=== PATIENT | female | born 1940 | race Caucasian/White ===

== ENCOUNTER → 2022-11-20 10:01 | Outpatient (REF) | payer OTHER, SELFPAY | LOC: WOUND 10:01 | PROVIDERS: ATTENDING PHYSICIAN Surgery; REFERRING PHYSICIAN Family Medicine | DX: I87.2 Venous insufficiency (chronic) (peripheral) (principal); L97.812 Non-pressure chronic ulcer of other part of right lower leg with fat layer exposed; I73.9 Peripheral vascular disease, unspecified; E78.2 Mixed hyperlipidemia; I10 Essential (primary) hypertension; E11.69 Type 2 diabetes mellitus with other specified complication; Z85.820 Personal history of malignant melanoma of skin | CPT/HCPCS: 11042; 97597 ==

== ENCOUNTER → 2022-11-26 09:58 | Outpatient (REF) | payer OTHER, SELFPAY | LOC: WOUND 09:58 | PROVIDERS: ATTENDING PHYSICIAN Surgery; REFERRING PHYSICIAN Family Medicine | DX: I87.2 Venous insufficiency (chronic) (peripheral) (principal); L97.812 Non-pressure chronic ulcer of other part of right lower leg with fat layer exposed; I73.9 Peripheral vascular disease, unspecified; E78.2 Mixed hyperlipidemia; I10 Essential (primary) hypertension; E11.69 Type 2 diabetes mellitus with other specified complication; Z85.820 Personal history of malignant melanoma of skin | CPT/HCPCS: 11042; 97597 ==

== ENCOUNTER → 2023-02-04 13:25 | Outpatient (REF) | payer OTHER, SELFPAY | LOC: WOUND 13:25 | PROVIDERS: ATTENDING PHYSICIAN Surgery Plastic and Reconstructive Surgery; REFERRING PHYSICIAN Family Medicine | DX: E11.622 Type 2 diabetes mellitus with other skin ulcer (principal); L97.812 Non-pressure chronic ulcer of other part of right lower leg with fat layer exposed; I87.2 Venous insufficiency (chronic) (peripheral); E11.51 Type 2 diabetes mellitus with diabetic peripheral angiopathy without gangrene | CPT/HCPCS: 97597; 99213 ==

== ENCOUNTER → 2023-03-18 09:27 | Outpatient (REF) | payer OTHER, SELFPAY | LOC: WOUND 09:27 | PROVIDERS: ATTENDING PHYSICIAN Surgery; REFERRING PHYSICIAN Family Medicine | DX: L97.812 Non-pressure chronic ulcer of other part of right lower leg with fat layer exposed (principal); I87.2 Venous insufficiency (chronic) (peripheral); I73.9 Peripheral vascular disease, unspecified; E78.2 Mixed hyperlipidemia; I10 Essential (primary) hypertension; E11.69 Type 2 diabetes mellitus with other specified complication; Z85.820 Personal history of malignant melanoma of skin | CPT/HCPCS: 97597; 99212 ==

== ENCOUNTER → 2023-03-27 09:11 | Outpatient (REF) | payer OTHER, SELFPAY | LOC: WOUND 09:11 | PROVIDERS: ATTENDING PHYSICIAN Surgery; REFERRING PHYSICIAN Family Medicine | DX: I87.2 Venous insufficiency (chronic) (peripheral) (principal); L97.812 Non-pressure chronic ulcer of other part of right lower leg with fat layer exposed; I73.9 Peripheral vascular disease, unspecified; E78.2 Mixed hyperlipidemia; I10 Essential (primary) hypertension; E11.69 Type 2 diabetes mellitus with other specified complication; Z85.820 Personal history of malignant melanoma of skin | CPT/HCPCS: 99212 ==

== ENCOUNTER → 2023-04-02 14:50 | Outpatient (REF) | payer OTHER, SELFPAY | LOC: RAD 14:50 | PROVIDERS: ATTENDING PHYSICIAN Physician Assistant; FAMILY PHYSICIAN Family Medicine | DX: I73.9 Peripheral vascular disease, unspecified (principal) | CPT/HCPCS: 93922; 93925 ==

== ENCOUNTER 2023-06-06 14:43 | Emergency (ER) | payer OTHER, SELFPAY ==
[2023-06-06 15:01] VITALS: BP 170/89
--- NOTE | 2023-06-06 17:47 | ED.GENMED ---
History of Present Illness
General
Chief Complaint: Fall
Source: patient
Exam Limitations: none
Time Seen by Provider: 06/06/23 17:47
Nursing documentation reviewed up to this point in time: agreed with
Travel History
Have you had any contact with someone who has COVID-19?: No
Do you have any symptoms of coronavirus? Fever > 100 degrees, chills, cough, shortness of breath, sore throat, loss of taste or smell, muscle aches, or headache?: No
History of Present Illness
History of Present Illness:
83-year-old female with history of HTN, NIDDM states yesterday at home stumbled and fell in her kitchen, struck face on tile floor and hit top of head on island. Got herself up immediately, no LOC, and went and washed her hair, Today significant
bruising and moderate facial swelling. Denies headache, change in vision, neck pain or any other injury.
Past History
Past History
ED Past Medical History: HTN, Hypercholesterolemia and NIDDM
ED Past Surgical History: Gynecological and Orthopedic
Social History
Tobacco: Non-smoker
Alcohol: None
Personal:
Living: alone
Review of Systems
Review of Systems
Allergies reviewed?: Yes
All Other Systems: ROS reviewed and negative except as documented in HPI and ROS
Constitutional: Denies fever
EENT: Reports other (Bilateral periorbital ecchymosis, nasal ecchymosis); Denies mouth pain
Respiratory: Denies trouble breathing
Cardiac: Denies chest pain or syncope
ABD/GI: Denies abdominal pain or nausea
: Denies incontinence
Musculoskeletal: Denies neck pain or back pain
Skin: Reports other (Bruising about the face)
Neurological: Reports no symptoms
Phy Exam
Physical Exam
Physical Exam:
GENERAL: No acute distress. A&Ox3.
CONSTITUTIONAL: Afebrile.
Head: 1.5 cm laceration right parietal scalp, intact scab, no swelling, non tender scalp
EYES: PERRL, conjunctivae normal, EOMs intact, Mild swelling eyelids and periorbital areas with ecchymosis. Tender right infraorbital bone, rest of orbits with no significant bony tenderness
Neck: Supple
ENMT: moist mucus membranes, Pharynx nl, TMs normal, no hemotympanum, Teeth intact
RESPIRATORY: Regular respirations, nonlabored, lungs clear.
CARDIOVASCULAR: Regular rate and rhythm, no murmurs, no rubs.
GI: Soft, nontender, normal BS
MUSCULOSKELETAL: No spinal bony tenderness, moves with ease. Well perfused.
SKIN: Warm, dry, pink, Ecchymosis and mild to moderate swelling right periorbital area, mild swelling and ecchymosis L periorbital area, ecchymosis chin.
PSYCH: Normal mood and affect. Well kept, interactive and appropriate
NEUROLOGIC: Awake, alert and oriented. No focal neurological deficits. CN 2-12 intact. Ambulates well with steady gait.
Course
Orders/Labs/Results
Orders:
Orders
06/06/23 17:[address] [CT Facial Bones W/o Iv Contras] Urgent
Comment:
Reason For Exam: face planted on tile floor
06/06/23 17:54
CT Head W/o Iv Contrast Urgent
Comment:
Reason For Exam: fall, head inj, not anticoagulated, neuro intact
Vital Signs
Initial and Last Documented VS:
Initial Vital Signs
Temp Pulse Resp BP Pulse Ox
98.5 F 79 18 170/89 96
06/06/23 15:01 06/06/23 15:01 06/06/23 15:01 06/06/23 15:01 06/06/23 15:01
Last Documented Vital Signs
Temp Pulse Resp BP Pulse Ox
98.5 F 79 18 170/89 96
06/06/23 15:01 06/06/23 15:01 06/06/23 15:01 06/06/23 15:01 06/06/23 15:01
MDM/Problems Addressed
Differential Diagnosis Includes:
facial bone fracture, concussion,
MDM/Problems Addressed:
83-year-old female with history of HTN, NIDDM states yesterday at home stumbled and fell in her kitchen, struck face on tile floor and hit top of head on island. Got herself up immediately, no LOC, and went and washed her hair, Today significant
bruising and moderate facial swelling. Denies headache, change in vision, neck pain or any other injury.
Very spry, pleasant, NAD
Full ROM of spine and no tenderness of neck or back.
The scalp laceration seems relatively superficial and has a nice well-formed scab over it, no need for suturing.
*Critical Care Note
Total Time (30-74mins, 75-104mins- exclusive of procedures): Not Applicable
ED Attending Note
-
Portions of this chart may have been created with voice recognition software.� Occasional wrong word or��sound alike� substitutions may have occurred due to the inherent limitations of voice recognition software.
Discharge Plan
Departure
Patient Disposition: Home (Routine Discharge)
Patient with high blood pressure during this ER visit?: No
Condition: Good
Discharge Problem:
Fall from slip, trip, or stumble, Contusion of face, Head injury, acute, Abrasion of scalp, Fracture closed, nasal bone
Instructions: Head Injury in Adults (DC), Contusion (DC), Preventing falls in adults, Nose Fracture (DC)
Prescriptions:
No Action
metformin 500 MG tablet
1,000 mg PO BID@0800,1700 Qty: 0 0RF
Hold Instructions: Resume on 01/25/23.
acetaminophen 325 MG tablet
650 mg PO Q4HPRN PRN (Reason: mild pain) Qty: 0 0RF
amoxicillin 500 mg Tablet
2,000 mg PO PRN PRN (Reason: prior to dental work)
simvastatin 40 mg Tablet
40 mg PO QPM
valsartan-hydrochlorothiazide 160-25 mg Tablet
1 tab PO DAILY
Restasis MultiDose 0.05 % Drops
1 drp OPHTHALMIC (EYE) Q12H
PreserVision AREDS-2 250-90-40-1 mg Capsule
1 tab PO BID
Referrals:
Ba Lofton MD [Active] -
Ezequiel Juan MD [Family Provider] - As needed
Activity Restrictions/Additional Instructions:
As we discussed, your CT scans show nothing worrisome. You do have a nasal fracture follow-up with ENT as needed.
Tylenol as needed for pain
Interventions
Interventions:
*Risk Screen - Suicide Last Done: 06/06/23 16:58
*General Assessment Last Done: 06/06/23 16:58
*Neglect/Abuse Screening Last Done: 06/06/23 16:58
ED- Fall Risk Assessment Last Done: 06/06/23 17:05
*ED COVID-19 Vaccine History Last Done: 06/06/23 16:58
*Nursing Disposition Last Done: 06/06/23 19:53
ED-Musculoskeletal Assessment Last Done: 06/06/23 17:02
ED- Neurological Assessment Last Done: 06/06/23 17:02
ED-Skin Assessment Last Done: 06/06/23 17:02
Discharge Date and Time
Discharge Date/Time: 06/06/23 19:53
Print Language: SETS[place]
== END 2023-06-06 19:53 | disposition home or self-care (01) ==
LOC: EMR 14:43
PROVIDERS: EMERGENCY PHYSICIAN Emergency Medicine; FAMILY PHYSICIAN Family Medicine
DX: S01.01XA Laceration without foreign body of scalp, initial encounter (principal); W01.119A Fall on same level from slipping, tripping and stumbling with subsequent striking against unspecified sharp object, initial encounter; I10 Essential (primary) hypertension; E11.9 Type 2 diabetes mellitus without complications
CPT/HCPCS: 99284; 70450; 70486

== ENCOUNTER 2023-08-28 22:55 | Emergency (ER) | payer OTHER, SELFPAY ==
[2023-08-28 23:00] VITALS: BP 167/82; BMI 23.7
[2023-08-28 23:02] VITALS: BP 167/82
[2023-08-29] VITALS (7 sets, daily range): BP systolic 128–168; BP diastolic 59–74
--- NOTE | 2023-08-29 00:05 | ED.GENMED ---
History of Present Illness
<Michelle Tijerina MD, Resident - Last Filed: 08/29/23 02:35>
General
Chief Complaint: Musculo-Skeletal Complaint
Source: patient
Time Seen by Provider: 08/28/23 23:47
History of Present Illness
History of Present Illness:
83-year-old female with history of hypertension, type 2 diabetes hyperlipidemia, presented to the ED with right hip discomfort. Patient states that while she was getting in bed she felt right hip discomfort like something was not dry. Patient
tried to get out from the bed but she was unable to bear weight on her right side. She denied pain in the right hip or right leg. She reports of being off balance. She uses a cane to walk. 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
ago (2013). Patient states that she felt that her right leg is shorter than the left leg. Patient takes metformin for diabetes. She denies history of CHF, A-fib, stroke.
Past History
<Michelle Tijerina MD, Resident - Last Filed: 08/29/23 02:35>
Past History
ED Past Medical History: HTN, Hypercholesterolemia and NIDDM
ED Past Surgical History: Gynecological and Orthopedic
Social History
Tobacco: Non-smoker
Alcohol: None
Personal:
Living: alone
Phy Exam
<Michelle Tijerina MD, Resident - Last Filed: 08/29/23 02:35>
General Physical Exam
General Presentation: well appearing
General age: appears stated age
General Skin: warm and dry
General Habitus: normal and elderly
General Mental: alert
General Hydration: appears well hydrated
Cardiovascular Exam
Cardiovascular Exam: regular rate/rhythm and no murmur
Pulmonary Exam
Pulmonary Exam: lungs clear, no rales, no crackles and no rhonchi
Musculoskeletal Exam
Musculoskeletal Exam: no edema and other (Inspection-no erythema, swelling in right hip, shortening of right leg than the left. palpation-no tenderness, no warmth. Restricted range of motion.)
Course
<Michelle Tijerina MD, Resident - Last Filed: 08/29/23 02:35>
Orders/Labs/Results
Orders:
Orders
08/28/23 23:08
CR Hip - RT w/wo Pel 2-3 Vw* Urgent
Comment:
Reason For Exam: possible dislocation
Include a pelvis x-ray?: Yes
08/29/23 00:38
Ondansetron Injectable [Zofran] 4 mg IV NOW STA
08/29/23 00:56
Propofol [Diprivan] 20 ml .ROUTE .STK-MED
08/29/23 01:08
Hip, Right 1 View [CR Hip - RT without Pel 1 Vw] Urgent
Comment:
Reason For Exam: s/p reduction
Vital Signs
Initial and Last Documented VS:
Initial Vital Signs
Temp Pulse Resp BP Pulse Ox
99 F 82 16 167/82 97
08/28/23 23:00 08/28/23 23:00 08/28/23 23:00 08/28/23 23:00 08/28/23 23:00
Last Documented Vital Signs
Temp Pulse Resp BP Pulse Ox
97.8 F 75 15 139/64 97
08/29/23 01:37 08/29/23 01:37 08/29/23 01:37 08/29/23 01:37 08/29/23 01:37
<Gordon Dodge DO - Last Filed: 08/29/23 02:19>
Orders/Labs/Results
Orders:
Orders
08/28/23 23:08
CR Hip - RT w/wo Pel 2-3 Vw* Urgent
Comment:
Reason For Exam: possible dislocation
Include a pelvis x-ray?: Yes
08/29/23 00:38
Ondansetron Injectable [Zofran] 4 mg IV NOW STA
08/29/23 00:56
Propofol [Diprivan] 20 ml .ROUTE .STK-MED
08/29/23 01:08
Hip, Right 1 View [CR Hip - RT without Pel 1 Vw] Urgent
Comment:
Reason For Exam: s/p reduction
Vital Signs
Initial and Last Documented VS:
Initial Vital Signs
Temp Pulse Resp BP Pulse Ox
99 F 82 16 167/82 97
08/28/23 23:00 08/28/23 23:00 08/28/23 23:00 08/28/23 23:00 08/28/23 23:00
Last Documented Vital Signs
Temp Pulse Resp BP Pulse Ox
97.8 F 75 15 139/64 97
08/29/23 01:37 08/29/23 01:37 08/29/23 01:37 08/29/23 01:37 08/29/23 01:37
Procedures
<Michelle Tijerina MD, Resident - Last Filed: 08/29/23 02:35>
Moderate Sedation
Patient is able to open mouth: Yes
<Gordon Dodge, DO - Last Filed: 08/29/23 02:19>
Moderate Sedation
ASA Risk Score: Class II
Chart and allergies reviewed: Yes
Consent for anesthesia obtained: Yes
Time out completed (validating right patient & procedure): Yes
Moderate Sedation Start Time(when first medication is given): 01:05
History of difficult intubation: No
Airway free of obstruction: Yes
Patient has a gag reflex: Yes
Patient has no dentures: Yes
Patient has no loose teeth: Yes
Medication administered by Provider during Moderate Sedation: IV Propofol (mg)
Total dose administered: 50
Time drug administered: 01:05
Joint/Fracture Reduction
Right Hip:
Indication for procedure:: dislocation
Procedure completed by: Myself, Freddy Flanagan PA-C, family law mediator
Consent form signed: Yes
Joint reduced: with anesthesia sedation
Anesthesia/sedation: Moderate sedation
Injury was: closed
Further treatement: needs re-check only
Post reduction exam: stable
Capillary Refill: normal
Normal distal neurovascular exam?: Yes
<Michelle Tijerina MD, Resident - Last Filed: 08/29/23 02:35>
*Critical Care Note
Total Time (30-74mins, 75-104mins- exclusive of procedures): Not Applicable
<Michelle Tijerina MD, Resident - Last Filed: 08/29/23 02:35>
Update Note
Update Note:
Right hip dislocation with shortening of right leg-
Patient has shortening of right leg and left possible right hip dislocation. Patient had a right hip replacement 10 years ago. Plan to do procedural sedation with propofol with closed reduction of right hip.
ED Attending Note
<Michelle Tijerina MD, Resident - Last Filed: 08/29/23 02:35>
-
Portions of this chart may have been created with voice recognition software.� Occasional wrong word or��sound alike� substitutions may have occurred due to the inherent limitations of voice recognition software.
<Gordon Dodge DO - Last Filed: 08/29/23 02:19>
ED Attending Note
Patient seen and examined by attending physician: Yes
I performed a history and physical exam of patient and discussed management with resident, I reviewed resident's note and agree with documented findings and plan of care.: Yes
ED Attending Note:
Pleasant 83-year-old female with prostatic hip dislocation. She sat down on a bed and felt a pop. The hip was originally done by Dr. Gonzales. Patient denies any trauma. Patient was seen in conjunction with the family law mediator. I
reviewed and agree with her history and treatment plan.
Discharge Plan
Departure
Patient Disposition: Home (Routine Discharge)
Date of Disposition: 08/29/23
Time of Disposition: 02:17
Patient with high blood pressure during this ER visit?: Yes
Condition: Good
Discharge Problem:
Dislocation, hip
Instructions: Knee Immobilizer (DC), Hip Dislocation (DC), BLOOD PRESSURE
Prescriptions:
No Action
metformin 500 MG tablet
1,000 mg PO BID@0800,1700 Qty: 0 0RF
Hold Instructions: Resume on 01/25/23.
acetaminophen 325 MG tablet
650 mg PO Q4HPRN PRN (Reason: mild pain) Qty: 0 0RF
amoxicillin 500 mg Tablet
2,000 mg PO PRN PRN (Reason: prior to dental work)
simvastatin 40 mg Tablet
40 mg PO QPM
valsartan-hydrochlorothiazide 160-25 mg Tablet
1 tab PO DAILY
Restasis MultiDose 0.05 % Drops
1 drp OPHTHALMIC (EYE) Q12H
PreserVision AREDS-2 250-90-40-1 mg Capsule
1 tab PO BID
Referrals:
David Gonzales MD [Active] - Next open appointment
Ezequiel Juan MD [Family Provider] -
Activity Restrictions/Additional Instructions:
It was a pleasure meeting you and taking part in your care. We hope for your continued healing and wellness.
Please read discharge instructions in their entirety. However, they are for general education and may not describe your exact diagnosis at discharge. Information on your ER visit and medical conditions were discussed with you along with appropriate
follow up information...
If indicated, please take your medications as instructed and indicated on discharge paperwork.
Please schedule a follow up appointment as directed. Call to schedule an appointment
Please return to the emergency department with ANY change in, persisting, or worsening of symptoms. If any of your symptoms do not improve, or persist, or become more severe within 6-12 hours, please return to the emergency department for further
care.
Please return to the emergency department if you develop a headache, neck pain/stiffness, fever greater than 100.4F, chest pain, shortness of breath, persistent nausea, vomiting, slurred speech, difficulty walking, numbness/tingling, weakness, signs
of infection or any other symptoms that are worrisome to you.
If you have any questions or concerns please do not hesitate to call the Hospital at or E-mail me directly at [email or web address]
Interventions
Interventions:
*Risk Screen - Suicide Last Done: 08/28/23 23:00
*General Assessment Last Done: 08/28/23 23:00
*Neglect/Abuse Screening Last Done: 08/28/23 23:00
*ED COVID-19 Vaccine History Last Done: 08/28/23 23:00
ED-Musculoskeletal Assessment Last Done: 08/28/23 23:07
Discharge Date and Time
Print Language: IS[place]I
== END 2023-08-29 02:53 | disposition home or self-care (01) ==
LOC: EMR 22:55
PROVIDERS: EMERGENCY PHYSICIAN Student in an Organized Health Care Education/Training Program; FAMILY PHYSICIAN Family Medicine
DX: T84.020A Dislocation of internal right hip prosthesis, initial encounter (principal); X58.XXXA Exposure to other specified factors, initial encounter; I10 Essential (primary) hypertension; E11.9 Type 2 diabetes mellitus without complications; E78.00 Pure hypercholesterolemia, unspecified; Z96.641 Presence of right artificial hip joint
CPT/HCPCS: 99283; 27265; 73501; 73502

== ENCOUNTER 2023-09-07 08:42 | Emergency (ER) | payer OTHER, SELFPAY ==
[2023-09-07] VITALS (19 sets, daily range): BP systolic 117–191; BP diastolic 59–143; BMI 24.3
--- NOTE | 2023-09-07 11:01 | ED.GENMED ---
History of Present Illness
General
Chief Complaint: Musculo-Skeletal Complaint
Source: patient and family
Exam Limitations: none
Time Seen by Provider: 09/07/23 09:03
History of Present Illness
History of Present Illness:
83-year-old female who presents with a dislocated right hip. Patient states this happened to her before. She was sitting in the bed and bent forward to touch her cat. She felt a pop out. Patient states she has some pain but notices her leg is
shortened. No other injuries. She had her initial replacement back in 2013
Past History
Past History
ED Past Medical History: HTN, Hypercholesterolemia and NIDDM
ED Past Surgical History: Gynecological and Orthopedic
Social History
Tobacco: Non-smoker
Alcohol: None
Personal:
Living: alone
Phy Exam
Physical Exam
Physical Exam:
CONSTITUTIONAL Patient alert and oriented to person, place and time. Well-appearing. Vital signs reviewed.
HEAD atraumatic, normocephalic.
EYES eyelids normal to inspection, Extraocular muscles intact, Conjunctiva normal, Sclera normal.
NECK normal range of motion, Trachea midline, no jugular venous distention.
RESPIRATORY CHEST No respiratory distress noted, Chest expansion equal, Bilateral breath sounds clear.
BACK normal inspection, no obvious deformities
UPPER EXTREMITY range of motion normal, Motor strength normal, no cyanosis, no edema.
LOWER EXTREMITY no cyanosis, no edema. Right lower extremity is shortened and slightly internally rotated. Normal distal perfusion
NEURO Speech normal, No focal motor deficits, [place] coma scale 15, Memory normal, Cranial Nerves intact to screening exam.
SKIN skin warm, dry, and normal in color.
PSYCHIATRIC patient oriented to person place and time, Normal affect.
Course
Orders/Labs/Results
Orders:
Orders
09/07/23 09:03
Hip, Right 2-3 Views [CR Hip - RT w/wo Pel 2-3 Vw*] Urgent
Comment:
Reason For Exam: pain, ? dislocation
Include a pelvis x-ray?: Yes
09/07/23 09:23
Propofol [Diprivan] 20 ml .ROUTE .STK-MED
09/07/23 10:28
Hip, Right 1 View [CR Hip - RT without Pel 1 Vw] Urgent
Comment:
Reason For Exam: post reduction film
09/07/23 11:01
Knee Immobilizer Right-Treatme ONCE
Vital Signs
Initial and Last Documented VS:
Initial Vital Signs
Temp Pulse Resp BP Pulse Ox
97.7 F 69 18 158/72 98
09/07/23 08:49 09/07/23 08:49 09/07/23 08:49 09/07/23 08:49 09/07/23 08:49
Last Documented Vital Signs
Temp Pulse Resp BP Pulse Ox
97.7 F 68 14 117/59 100
09/07/23 10:22 09/07/23 10:40 09/07/23 10:40 09/07/23 10:40 09/07/23 10:40
Procedures
Moderate Sedation
ASA Risk Score: Class II
Chart and allergies reviewed: Yes
Consent for anesthesia obtained: Yes
Time out completed (validating right patient & procedure): Yes
Moderate Sedation Start Time(when first medication is given): 10:25
History of difficult intubation: No
Airway free of obstruction: Yes
Patient has a gag reflex: Yes
Patient is able to open mouth: Yes
Patient has no dentures: Yes
Patient has no loose teeth: Yes
Medication administered by Provider during Moderate Sedation: IV Propofol (mg) (50 mg)
Total dose administered: 50
Time drug administered: 10:25
Moderate Sedation Procedure End Time: 10:35
Joint/Fracture Reduction
Right Hip:
Indication for procedure:: Dislocation
Procedure completed by: Mita
Consent form signed: Yes
If no, reason: Emergency procedure
Joint reduced: with anesthesia sedation
Injury was: closed
Further treatement: needs re-check only
Post reduction exam: stable
Capillary Refill: normal
Normal distal neurovascular exam?: Yes
MDM/Problems Addressed
MDM/Problems Addressed:
Right hip dislocation, procedural sedation
*Radiology
Radiology exam reviewed: preliminary read by ED provider (Right hip dislocation)
*Pulse Oximetry
Patient hypoxic: no
*Critical Care Note
Total Time (30-74mins, 75-104mins- exclusive of procedures): Not Applicable
Data Reviewed
Review of Other/Old Records Reveals: Records (Prior records reveals she had procedural sedation and was given 50 of propofol)
Source: patient and family
Further Testing Considered But Not Given:
Considered additional pelvis imaging but clearly with hip dislocation
Patient Management
Escalation/DeEscalation of care consider admission/obs:
Hip reduced. Knee immobilizer placed and counseled on different positions to avoid. She will follow-up with orthopedics
ED Attending Note
-
Portions of this chart may have been created with voice recognition software.� Occasional wrong word or��sound alike� substitutions may have occurred due to the inherent limitations of voice recognition software.
Discharge Plan
Departure
Patient Disposition: Home (Routine Discharge)
Date of Disposition: 09/07/23
Time of Disposition: 11:08
Patient with high blood pressure during this ER visit?: No
Discharge Problem:
Dislocation, hip closed
Instructions: Hip Dislocation, Moderate and Deep Sedation in Adults
Prescriptions:
No Action
metformin 500 MG tablet
1,000 mg PO BID@0800,1700 Qty: 0 0RF
Hold Instructions: Resume on 01/25/23.
acetaminophen 325 MG tablet
650 mg PO Q4HPRN PRN (Reason: mild pain) Qty: 0 0RF
amoxicillin 500 mg Tablet
2,000 mg PO PRN PRN (Reason: prior to dental work)
simvastatin 40 mg Tablet
40 mg PO QPM
valsartan-hydrochlorothiazide 160-25 mg Tablet
1 tab PO DAILY
Restasis MultiDose 0.05 % Drops
1 drp OPHTHALMIC (EYE) Q12H
PreserVision AREDS-2 250-90-40-1 mg Capsule
1 tab PO BID
Referrals:
Ezequiel Juan MD [Family Provider] -
Activity Restrictions/Additional Instructions:
Please see orthopedics in follow-up in the next 1 week. Please avoid bending over as discussed. Return immediately for recurrent dislocation, numbness, tingling or any other concerns.
Interventions
Interventions:
*Risk Screen - Suicide Last Done: 09/07/23 09:02
*General Assessment Last Done: 09/07/23 09:02
*Neglect/Abuse Screening Last Done: 09/07/23 09:02
ED- Fall Risk Assessment Last Done: 09/07/23 09:02
*ED COVID-19 Vaccine History Last Done: 09/07/23 09:02
ED-Musculoskeletal Assessment Last Done: 09/07/23 09:02
Discharge Date and Time
Print Language: GRE[place]
== END 2023-09-07 12:12 | disposition home or self-care (01) ==
LOC: EMR 08:42
PROVIDERS: EMERGENCY PHYSICIAN Emergency Medicine; FAMILY PHYSICIAN Family Medicine
DX: S73.004A Unspecified dislocation of right hip, initial encounter (principal); X50.1XXA Overexertion from prolonged static or awkward postures, initial encounter; Z96.641 Presence of right artificial hip joint
CPT/HCPCS: 99284; 27265; 99152; 73501; 73502

== ENCOUNTER 2023-10-09 14:39 | Emergency (ER) | payer OTHER, SELFPAY ==
[2023-10-09] VITALS (21 sets, daily range): BP systolic 132–180; BP diastolic 54–95; BMI 23.8
--- NOTE | 2023-10-09 15:22 | ED.MUSCINJ ---
HPI-Injury
<Freddy Flanagan PA-C - Last Filed: 10/09/23 17:41>
General
Chief Complaint: Musculo-Skeletal Complaint
Source: patient
Exam Limitations: none
Time Seen by Provider: 10/09/23 15:04
History of Present Illness-Injury
Initial Injury comments:
83-year-old female presents via EMS from home with right hip probable dislocation. 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 She has a right hip replacement performed several years ago. She was here last month for the same issue. Today
she was sitting in a shower chair and dropped her soap and leaned over to pepper picker her soap and felt it pop out of place. She is not anticoagulated last meal was at noon. No other complaints
Past History
<MARY Espinal Last Filed: 10/09/23 17:41>
Past History
ED Past Medical History: HTN, Hypercholesterolemia and NIDDM
ED Past Surgical History: Gynecological and Orthopedic
Social History
Tobacco: Non-smoker
Alcohol: None
Personal:
Living: alone
Phy Exam
<MARY Espinal Last Filed: 10/09/23 17:41>
Physical Exam
Physical Exam:
General: Well-appearing female no acute respiratory distress
HEENT: Normocephalic atraumatic
Heart: Regular rate and rhythm no murmurs
Lungs: Clear no wheeze or rales
Musculoskeletal exam: Right leg is shortened and internally rotated.
Skin is intact
Injury Course
<Freddy Flanagan PA-C - Last Filed: 10/09/23 17:41>
Orders/Labs/Results
Orders:
Orders
10/09/23 15:17
CR Hip - RT without Pel 1 Vw Urgent
Comment:
Reason For Exam: dislocation, please do portable
10/09/23 15:58
Electrocardiogram (*1) Urgent
Reason for Study: Fatigue / Weakness
EKG- Treatment ONCE
10/09/23 16:19
Propofol [Diprivan] 20 ml .ROUTE .STK-MED
10/09/23 16:35
Hip, Right 1 View [CR Hip - RT without Pel 1 Vw] Stat
Comment: portable
Reason For Exam: post reduction
<Jessica Anderson DO - Last Filed: 10/09/23 19:38>
Orders/Labs/Results
Orders:
Orders
10/09/23 15:17
CR Hip - RT without Pel 1 Vw Urgent
Comment:
Reason For Exam: dislocation, please do portable
10/09/23 15:58
Electrocardiogram (*1) Urgent
Reason for Study: Fatigue / Weakness
EKG- Treatment ONCE
10/09/23 16:19
Propofol [Diprivan] 20 ml .ROUTE .STK-MED
10/09/23 16:35
Hip, Right 1 View [CR Hip - RT without Pel 1 Vw] Stat
Comment: portable
Reason For Exam: post reduction
Procedures
<Freddy Flanagan PA-C - Last Filed: 10/09/23 17:41>
Moderate Sedation
ASA Risk Score: Class II
Chart and allergies reviewed: Yes
Consent for anesthesia obtained: Yes
Time out completed (validating right patient & procedure): Yes
Moderate Sedation Start Time(when first medication is given): 16:30
History of difficult intubation: No
Airway free of obstruction: Yes
Patient has a gag reflex: Yes
Patient is able to open mouth: Yes
Patient has no dentures: Yes
Patient has no loose teeth: Yes
Medication administered by Provider during Moderate Sedation: IV Propofol (mg)
Total dose administered: 50
Time drug administered: 16:30
Moderate Sedation Procedure End Time: 16:42
Comment: Sedation performed by Ed attendingJustin. Reduction performed by myself
<Freddy Flanagan PA-C - Last Filed: 10/09/23 17:41>
MDM/Problems Addressed
Differential Diagnosis Includes:
Right hip discomfort likely recurrent dislocation. Consider fracture. X-rays pending.
I reviewed prior records she was here last month and had a dislocation. She required 50 mg of propofol at that time to reduce the hip. She has any interim seen the orthopedic doctor. The plan is if it dislocates 1 more time he will consider
revising her hip.
<Freddy Flanagan PA-C - Last Filed: 10/09/23 17:41>
*Critical Care Note
Total Time (30-74mins, 75-104mins- exclusive of procedures): Not Applicable
<Freddy Flanagan PA-C - Last Filed: 10/09/23 17:41>
Update Note
Update Note:
Patient had initial hip x-rays that demonstrated dislocation of the right hip. Written consent obtained for moderate sedation and closed reduction. Sedation performed by emergency room attending. The hip was reduced with hip in slight flexion and
longitudinal traction with internal rotation. Postreduction films demonstrate successful reduction of the hip. The knee was placed in a knee immobilizer. He was discharged home with instructions to follow-up with her orthopedic team.
EKG shows sinus rhythm with first-degree AV block with a rate of 67 no ischemic changes
ED Attending Note
<Freddy Flanagan PA-C - Last Filed: 10/09/23 17:41>
-
Portions of this chart may have been created with voice recognition software.� Occasional wrong word or��sound alike� substitutions may have occurred due to the inherent limitations of voice recognition software.
<Jessica Anderson DO - Last Filed: 10/09/23 19:38>
ED Attending Note
Patient seen and examined by attending physician: Yes
I performed the substantive portion of visit, reviewed & personally made and approve the management plan that is documented in note by myself or JOEY.: Yes
ED Attending Note:
I have reviewed and agree with Freddy Flanagan PA-C's history and treatment plan. My exam revealed right lower extremity shortened and rotated, 2+ DP pulse, able to move right toes. Xray shows dislocation of right prosthetic hip. Patient
sedated and right hip dislocation successfully reduced. Right knee immobilizer placed. No acute complications during procedure. I was present during entire procedure. Pt stable for discharge home with outpatient orthopedic follow up.
Discharge Plan
Departure
Patient Disposition: Home (Routine Discharge)
Date of Disposition: 10/09/23
Time of Disposition: 17:40
Patient with high blood pressure during this ER visit?: No
Discharge Problem:
Dislocation, hip
Instructions: MODERATE SEDATION ADULT
Prescriptions:
No Action
metformin 500 MG tablet
1,000 mg PO BID@0800,1700 Qty: 0 0RF
acetaminophen 325 MG tablet
650 mg PO Q4HPRN PRN (Reason: mild pain) Qty: 0 0RF
amoxicillin 500 mg Tablet
2,000 mg PO PRN PRN (Reason: prior to dental work)
simvastatin 40 mg Tablet
40 mg PO QPM
valsartan-hydrochlorothiazide 160-25 mg Tablet
1 tab PO DAILY
Restasis MultiDose 0.05 % Drops
1 drp OPHTHALMIC (EYE) Q12H
PreserVision AREDS-2 250-90-40-1 mg Capsule
1 tab PO BID
Referrals:
Ezequiel Juan MD [Family Provider] -
Activity Restrictions/Additional Instructions:
Please follow-up with your orthopedic doctor for next available appointment to discuss further treatment options regarding your recurrent hip dislocation. Return if needed.
Interventions
Interventions:
*Risk Screen - Suicide Last Done: 10/09/23 14:53
*General Assessment Last Done: 10/09/23 14:53
*Neglect/Abuse Screening Last Done: 10/09/23 14:53
*ED COVID-19 Vaccine History Last Done: 10/09/23 14:53
*Nursing Disposition Last Done: 10/09/23 18:15
ED-Musculoskeletal Assessment Last Done: 10/09/23 15:20
Discharge Date and Time
Discharge Date/Time: 10/09/23 18:17
Print Language: GUYANESE
== END 2023-10-09 18:17 | disposition home or self-care (01) ==
LOC: EMR 14:39
PROVIDERS: EMERGENCY PHYSICIAN Emergency Medicine; FAMILY PHYSICIAN Family Medicine
DX: T84.020A Dislocation of internal right hip prosthesis, initial encounter (principal); Y79.2 Prosthetic and other implants, materials and accessory orthopedic devices associated with adverse incidents; I10 Essential (primary) hypertension; E78.00 Pure hypercholesterolemia, unspecified; E11.9 Type 2 diabetes mellitus without complications
CPT/HCPCS: 99284; 27266; 73501; 93005

== ENCOUNTER 2023-12-01 10:52 | Inpatient (IN) | payer OTHER, SELFPAY ==
[2023-11-11 14:12] VITALS: BMI 21.3
[2023-11-11 14:38] LABS: Hematocrit 34.7 % (37.0-47.0); Hemoglobin 11.9 g/dL (12.0-16.0); Mean Corp Hgb Conc. 34.3 g/dL (33.0-37.0); Mean Corpuscular Hgb 30.1 pg (27.0-31.0); Mean Corpuscular Volume 87.8 fL (81.0-99.0); Mean Platelet Volume 10.2 fL (7.4-10.4); Platelet Count 348 10^3/uL (130-400); Red Blood Cell Count 3.95 10^6/uL (4.20-5.40); Red Cell Dist. Width 14.1 % (11.5-14.5); White Blood Cell Count 6.6 10^3/uL (4.8-10.8)
[2023-11-11 15:10] LABS: ALT (SGPT) 21 U/L (0-35); AST (SGOT) 29 U/L (14-36); Albumin 4.4 g/dl (3.5-5.0); Alkaline Phosphatase 48 U/L (38-126); Blood Urea Nitrogen 31 mg/dl (7-17); Calcium 10.2 mg/dl (8.4-10.2); Carbon Dioxide 23 mmol/L (22-30); Chloride 96 mmol/L (98-107); Estimated Creatinine Clearance 43 ml/min; Glucose 114 mg/dl (70-99); Potassium 4.8 mmol/L (3.5-5.1); Sodium 131 mmol/L (135-145); Total Bilirubin 0.5 mg/dl (0.2-1.3); Total Protein 6.8 g/dl (6.3-8.2); eGFR > 60.00
[2023-11-12 08:39] LABS: Glycohemoglobin (HgbA1c) 6.4 % (4.0-5.6)
[2023-11-25 09:47] VITALS: BMI 21.3
[2023-12-01] VITALS (14 sets, daily range): BP systolic 110–150; BP diastolic 50–100
[2023-12-01] MEDS: TYLENOL 650 MG PO ×3 (12:06→20:49)
[2023-12-01] MEDS: NORMOSOL-R/PLASMALYTE-A 1000 IV (12:14)
[2023-12-01 12:41] LABS: Glucose - Point of Care 123 mg/dl (70-99)
[2023-12-01 12:46] LABS: Hemoglobin 12.7 g/dL (12.0-16.0)
--- NOTE | 2023-12-01 15:26 | W.PN.UPDATE ---
Update Note
Progress Note Update
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
- s/p b/l LEN, 2013, and remote L TKA w/ revision 2002
DVT prophylaxis - ASA, b/l venous foot pumps
HTN - + parameters - monitor BP
Atrial tachycardia per records - monitor on tele
NIDDM, A1c 6.4 - monitor BS
- Resume Metformin, + SSI
HLD
PAD
Spinal stenosis
Macular degeneration
Amish
Mild hyponatremia, asymptomatic
Has prophylactic Cefadroxil upon d/c
[2023-12-01 16:18] LABS: Glucose - Point of Care 88 mg/dl (70-99)
[2023-12-01] MEDS: DILAUDID 2 MG PO (17:19)
[2023-12-01] MEDS: NSS 1000 IV (18:13)
[2023-12-01 18:17] LABS: Glucose - Point of Care 94 mg/dl (70-99)
--- NOTE | 2023-12-01 18:30 | PTCARENOTE ---
1810: Patient arrived to 2S. Full head to toe assessment completed. B/L LE neurovascular assessment completed. Scant amount of drainage on R hip primaseal. Patient on RA with SpO2 greater than 92%. IVF running per order. Call lozano within reach and
bed in lowest position.
[2023-12-01] MEDS: TORADOL 10 MG IV (18:35)
[2023-12-01] MEDS: ASPIRIN 325 MG PO (18:35)
[2023-12-01] MEDS: GLUCOPHAGE XR EXTENDED RELEASE 1000 MG PO (18:35)
[2023-12-01] MEDS: BACTROBAN 2% OINTMENT 1 APPLIC NASAL (20:48)
[2023-12-01] MEDS: SENOKOT 17.2 MG PO (20:49)
[2023-12-01] MEDS: COLACE 100 MG PO (20:49)
[2023-12-01] MEDS: RESTASIS 0.05% OPHTHALMIC EMULSION 1 DROPS OPHTH (20:49)
[2023-12-01 21:33] LABS: Glucose - Point of Care 215 mg/dl (70-99)
[2023-12-01] MEDS: ANCEF 5 IV (21:44)
[2023-12-01] MEDS: PEPCID 20 MG PO (21:44)
[2023-12-02] MEDS: TYLENOL PO ×2 (00:34→04:23)
[2023-12-02 03:00] VITALS: BP 120/64
[2023-12-02] MEDS: ANCEF 5 IV (05:09)
[2023-12-02 07:10] VITALS: BP 133/84
[2023-12-02 07:39] LABS: Glucose - Point of Care 115 mg/dl (70-99)
[2023-12-02] MEDS: GLUCOPHAGE XR EXTENDED RELEASE 1000 MG PO (07:39)
[2023-12-02] MEDS: TYLENOL 650 MG PO ×2 (07:39→11:49)
[2023-12-02] MEDS: SENOKOT 17.2 MG PO (07:39)
[2023-12-02] MEDS: CELEBREX 200 MG PO (07:39)
[2023-12-02] MEDS: ASPIRIN 325 MG PO (07:39)
[2023-12-02] MEDS: COLACE 100 MG PO (07:39)
[2023-12-02] MEDS: LIPITOR 20 MG PO (07:40)
[2023-12-02] MEDS: BACTROBAN 2% OINTMENT 1 APPLIC NASAL (07:41)
[2023-12-02] MEDS: RESTASIS 0.05% OPHTHALMIC EMULSION 1 DROPS OPHTH (07:41)
[2023-12-02 11:05] VITALS: BP 141/77
[2023-12-02 11:30] VITALS: BP 141/77; PULSE 74
--- NOTE | 2023-12-02 12:03 | W.PN.ORTHO ---
Today's Communication / Plan
-
Await PT and OT recs.
D/c later today if remaining clinically stable.
Assessment
.
Distal Motor Intact: Yes
Dressing:
Clean, dry and intact.
Assessment:
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
- s/p b/l LEN, 2013, and remote L TKA w/ revision 2002
DVT prophylaxis - ASA, b/l venous foot pumps
HTN - + parameters - BPs stable
Atrial tachycardia per records - maintaining NSR w/ 1st degree AV block on tele
NIDDM, A1c 6.4 - BS improving w/ resumption of Metformin ER. No need for SSI thankfully
HLD
PAD
Spinal stenosis
Macular degeneration
Rastafari
Mild hyponatremia, asymptomatic
Has prophylactic Cefadroxil upon d/c
Plan
.
Surgery / Date: Revision of R LEN w/ Dr Gonzales 12/01/23
DVT Prophylaxis: Aspirin
Activity:
Out of bed.
PT/OT
Discharge Plan: Home w/ Outpatient PT
Subjective
.
.:
Patient resting comfortably in bed this AM.
R hip pain minimal w/ current pain meds.
Denies any new significant complaints.
Eager for potential d/c today.
Vital Signs and Labs
.
Vital Signs and Labs:
Lab Results
12/01/23 12:14
11/11/23 13:57
Temp Pulse Resp BP Pulse Ox
98.1 F 74 18 141/77 96
12/02/23 11:05 12/02/23 11:05 12/02/23 11:05 12/02/23 11:05 12/02/23 11:05
Non-invasive Hgb result: 10
Physical Exam
-
HEENT: No pallor, cyanosis, or jaundice. Throat clear.
NECK: Supple. No JVD.
RESPIRATORY: Lungs clear to auscultation.
CVS: S1, S2 normal. RRR.�
ABDOMEN: Soft, non-tender. No distension.
EXTREMITIES: Strength equal, no calf pain with palpation/dorsiflexion. Calves soft.
MANAGER BUILDING: AOx3. No focal deficits. senior technical analyst grossly intact
--- NOTE | 2023-12-02 12:16 | W.DS.TRANS ---
DC Summary - Crown Blocker
-
Discharge Instructions:
Sleep Apnea Risk Intermediate
Discharge Diagnosis/Procedures Recurrent dislocation of R hip s/p Revision of R
LEN w/ Dr Gonzales 12/01/23
Diet Diabetic, Carb Controlled
Activity As tolerated,With Walker
Driving Restrictions Not until seen by your Dr
Bathing Restrictions OK to Shower
Other Services PT
Wound Care Dressing to be removed 1 week post-surgery.
Arabella to be removed at 2 week follow-up
appointment.
Instructions:
Stand-Alone Forms: Total Hip/Knee Replacement D/C
Changes to Home Medications: Yes
Discharge Medications:
DC Medications w/original date entered in [facility]
metformin 500 mg tablet 1,000 mg (2 x 500 mg) PO BID@0800,1700 ##0 11/27/13
amoxicillin 500 mg tablet 2,000 mg PO PRN PRN prior to dental work 01/13/23
cyclosporine 0.05 % eye drops (Restasis MultiDose) 1 drp ophthalmic (eye) Q12H Eye Condition 01/23/23
simvastatin 40 mg tablet 40 mg PO DAILY High Cholesterol 01/23/23
vit C 250 mg-vit E 90 mg-zinc 40 mg-copper 1 [id number] capsule (PreserVision AREDS-2) 1 tab PO BID Eye Condition 01/23/23
fluocinonide 0.05 % topical solution 1 applic topical BID PRN dry skin on scalp 11/25/23
Saccharomyces boulardii 250 mg capsule (Florastor) 250 mg PO BID #14 caps 12/02/23
acetaminophen 325 mg tablet 650 mg (2 x 325 mg) PO Q4HWA #30 tabs 12/02/23
aspirin 325 mg tablet 325 mg PO DAILY #30 tabs 12/02/23
cefadroxil 500 mg capsule 500 mg PO Q12H #14 caps 12/02/23
celecoxib 100 mg capsule (Celebrex) 100 mg PO BID #30 caps 12/02/23
docusate sodium 100 mg capsule 100 mg PO BID #30 caps 12/02/23
hydromorphone 2 mg tablet 2 - 4 mg (1 - 2 x 2 mg) PO Q6H PRN moderate-severe pain #30 tabs 12/02/23
mupirocin 2 % topical ointment 1 applic topical BID #0 grams 12/02/23
ondansetron HCl 4 mg tablet 4 mg PO Q6H PRN nausea and vomiting #30 tabs 12/02/23
sennosides 8.6 mg tablet (Senna Laxative) 17.2 mg (2 x 8.6 mg) PO BID #30 tabs 12/02/23
valsartan 160 mg-hydrochlorothiazide 25 mg tablet 1 tab PO DAILY Blood Pressure #0 tabs 12/02/23
Home Medication Changes
Saccharomyces boulardii 250 mg capsule (Florastor) 250 mg PO BID #14 caps 12/02/23
acetaminophen 325 mg tablet 650 mg (2 x 325 mg) PO Q4HWA #30 tabs 12/02/23
aspirin 325 mg tablet 325 mg PO DAILY #30 tabs 12/02/23
cefadroxil 500 mg capsule 500 mg PO Q12H #14 caps 12/02/23
celecoxib 100 mg capsule (Celebrex) 100 mg PO BID #30 caps 12/02/23
docusate sodium 100 mg capsule 100 mg PO BID #30 caps 12/02/23
hydromorphone 2 mg tablet 2 - 4 mg (1 - 2 x 2 mg) PO Q6H PRN moderate-severe pain #30 tabs 12/02/23
mupirocin 2 % topical ointment 1 applic topical BID #0 grams 12/02/23
ondansetron HCl 4 mg tablet 4 mg PO Q6H PRN nausea and vomiting #30 tabs 12/02/23
sennosides 8.6 mg tablet (Senna Laxative) 17.2 mg (2 x 8.6 mg) PO BID #30 tabs 12/02/23
Pending Results: No
[2023-12-02 12:18] LABS: Glucose - Point of Care 86 mg/dl (70-99)
--- NOTE | 2023-12-02 13:08 | CM ---
Pt seen at beside. Pt lives alone in a one story home w/ 3 steps to enter.
Pt's son will stay w/ her during recovery.
Utilizes walker, cane, shower chair, shower rails, RTS at home
Previously independent w/ walker and cane. Pt confirms she is able to perform personal care and ambulate independently w/ DME
PT/OT rec OP PT/OT. Pt confirms she will begin at [address] in [facility] w/ PT Faustina Uribe. Location is in [address] [place]
PCP confirmed, Dr. Juan. [facility] pharmacy confirmed in [place].
Denies financial insecurities.
Pt confirmed daughter will transport her home and is comfortable w/ the car transfers.
Plan: Home w/ OP PT/OT
== END 2023-12-02 14:50 | disposition home or self-care (01) | DRG 467 ==
LOC: 2 SOUTH 10:52
PROVIDERS: ADMITTING PHYSICIAN Specialist; FAMILY PHYSICIAN Family Medicine; REFERRING PHYSICIAN Internal Medicine Cardiovascular Disease
PROC: 0SRA00A Replacement of Right Hip Joint, Acetabular Surface with Polyethylene Synthetic Substitute, Uncemented, Open Approach (ICD-10-PCS; 2023-12-01)
PROC: 0SPA0JZ Removal of Synthetic Substitute from Right Hip Joint, Acetabular Surface, Open Approach (ICD-10-PCS; 2023-12-01)
DX: T84.020A Dislocation of internal right hip prosthesis, initial encounter (principal); I47.19 Other supraventricular tachycardia; E11.9 Type 2 diabetes mellitus without complications; I10 Essential (primary) hypertension; D64.9 Anemia, unspecified; Y79.2 Prosthetic and other implants, materials and accessory orthopedic devices associated with adverse incidents; M16.11 Unilateral primary osteoarthritis, right hip; E78.5 Hyperlipidemia, unspecified; I44.0 Atrioventricular block, first degree; H35.30 Unspecified macular degeneration; M17.0 Bilateral primary osteoarthritis of knee; Z96.653 Presence of artificial knee joint, bilateral; Z96.641 Presence of right artificial hip joint; Z79.84 Long term (current) use of oral hypoglycemic drugs; Z79.899 Other long term (current) drug therapy; Z88.1 Allergy status to other antibiotic agents; Z88.5 Allergy status to narcotic agent; Z88.8 Allergy status to other drugs, medicaments and biological substances; Z87.19 Personal history of other diseases of the digestive system; Z83.3 Family history of diabetes mellitus
CPT/HCPCS: 36415; 73502; 80053; 82962; 83036; 85014; 85018; 85027; 86850; 86900; 86901; 87070; 97110; 97116; 97162; 97166; 97535

== ENCOUNTER → 2024-05-11 10:06 | Outpatient (REF) | payer OTHER, SELFPAY | LOC: DHVS 10:06 | PROVIDERS: ATTENDING PHYSICIAN Surgery Vascular Surgery; FAMILY PHYSICIAN Family Medicine | DX: I73.9 Peripheral vascular disease, unspecified (principal) | CPT/HCPCS: 93922; 93925 ==

== ENCOUNTER 2024-08-31 17:08 | Emergency (ER) | payer OTHER, SELFPAY ==
[2024-08-31 17:14] VITALS: BP 132/75
--- NOTE | 2024-08-31 20:22 | ED.GENMED ---
History of Present Illness
General
Chief Complaint: Musculo-Skeletal Complaint
Source: patient
Exam Limitations: none
Time Seen by Provider: 08/31/24 19:52
Nursing documentation reviewed up to this point in time: agreed with
History of Present Illness
History of Present Illness:
Patient is a 4-year-old female status post revision of right total hip arthroplasty by Dr. Gonzales November 2023, hypertension atrial tachycardia NIDDM presents to the ER for evaluation. Patient was doing okay today and noticed that her right hip
felt more stiffer than normal. She also noticed an area of swelling to the right lateral thigh/hip region. She denies any fall trauma or injury. Denies any fever chills or redness to the area. She did call orthopedics and has an appoint with
Nohemi tomorrow 9 AM.
Past History
Past History
ED Past Medical History: HTN, Hypercholesterolemia and NIDDM
ED Past Surgical History: Gynecological and Orthopedic
Social History
Tobacco: Non-smoker
Alcohol: None
Personal:
Living: alone
Review of Systems
Review of Systems
Allergies reviewed?: Yes
Phy Exam
General Physical Exam
General Presentation: no apparent distress
General age: appears stated age
General Skin: warm and dry
General Habitus: elderly
General Mental: alert
General Hydration: appears well hydrated
Neurological Exam
Neurological Exam: alert and oriented x3
Musculoskeletal Exam
Musculoskeletal Exam: other (Right lower extremity with strong pulses soft raised area to right lateral hip, nontender to palpation no erythema or swelling; full ROM to right hip )
Skin Exam
Skin Exam: normal color and warm/dry
Psychiatric Exam
Psychiatric Exam: normal mood/affect
Course
Orders/Labs/Results
Orders:
Orders
08/31/24 17:20
Hip, Right 2-3 Views [CR Hip - RT w/wo Pel 2-3 Vw*] Urgent
Comment:
Reason For Exam: deformity
Include a pelvis x-ray?: No
08/31/24 21:00
CBC/With Diff [Complete Blood Count/With Diff] Urgent
CRP [C-Reactive Protein] Urgent
Sed Rate [Erythrocyte Sed Rate] Urgent
Abnormal Lab Results
08/31/24
21:00
RBC 3.72 L 10^6/uL
(4.20-5.40)
Hgb 11.5 L g/dL
(12.0-16.0)
Hct 34.4 L %
(37.0-47.0)
RDW 15.0 H %
(11.5-14.5)
Abs Immat Gran (auto) 0.1 H 10^3/uL
(0-0.05)
Absolute Neuts (auto) 7.2 H 10^3/uL
(1.4-6.5)
Absolute Monos (auto) 1.0 H 10^3/uL
(0.1-0.6)
Lymphocytes % 18.7 L %
(20.5-51.1)
ESR 29 H mm/hour
(0-20)
08/31/24 21:00
Vital Signs
Initial and Last Documented VS:
Initial Vital Signs
Temp Pulse Resp BP Pulse Ox
98.3 F 75 16 132/75 98
08/31/24 17:14 08/31/24 17:14 08/31/24 17:14 08/31/24 17:14 08/31/24 17:14
Last Documented Vital Signs
Temp Pulse Resp BP Pulse Ox
98.3 F 75 16 132/75 98
08/31/24 17:14 08/31/24 17:14 08/31/24 17:14 08/31/24 17:14 08/31/24 20:44
MDM/Problems Addressed
Differential Diagnosis Includes:
Not limited to seroma
MDM/Problems Addressed:
As documented patient is status post revision of right total hip arthroplasty by Dr. Gonzales November 2023 presents with a sensation that right hip felt more stiffer than normal today while doing yoga. On exam she has the area of swelling that is
very soft to palpation almost fluctuant fluid-filled sensation. There is however no evidence of infection no erythema. She is nontender over this area denies any fever chills and is good range of motion. She has appointment with orthopedics Dr.
Janet tomorrow morning at 9 AM. I did speak with Ortho on-call Dr. Rodriguez who does suggest basic lab work that Dr. Gonzales can view tomorrow and patient stable for discharge home with follow-up with as planned.
Chronic conditions affecting care:
Right hip arthroplasty
*Radiology
Radiology exam reviewed: radiology read reviewed
*Pulse Oximetry
SaO2: 98
Oxygen Mode of Delivery: Room air
Patient hypoxic: no
*Critical Care Note
Total Time (30-74mins, 75-104mins- exclusive of procedures): Not Applicable
ED Attending Note
-
Portions of this chart may have been created with voice recognition software.� Occasional wrong word or��sound alike� substitutions may have occurred due to the inherent limitations of voice recognition software.
Discharge Plan
Departure
Patient Disposition: Home (Routine Discharge)
Date of Disposition: 08/31/24
Time of Disposition: 21:32
Patient with high blood pressure during this ER visit?: Yes
Condition: Fair
Covid-19: Not Applicable
Discharge Problem:
Acute hip pain
Prescriptions:
No Action
metformin 500 MG tablet
1,000 mg PO BID@0800,1700 Qty: 0 0RF
amoxicillin 500 mg Tablet
2,000 mg PO PRN PRN (Reason: prior to dental work)
simvastatin 40 mg Tablet
40 mg PO DAILY
Restasis MultiDose 0.05 % Drops
1 drp OPHTHALMIC (EYE) Q12H
PreserVision AREDS-2 250-90-40-1 mg Capsule
1 tab PO BID
fluocinonide 0.05 % Solution
1 applic TOPICAL BID PRN (Reason: dry skin on scalp)
aspirin 325 mg Tablet
325 mg PO DAILY Qty: 30 0RF
Rx Instructions:
Take daily x4 weeks for blood clot prevention.
hydromorphone 2 mg Tablet
2 - 4 mg PO Q6H PRN (Reason: moderate-severe pain) Qty: 30 0RF
Rx Instructions:
1 tab for moderate pain, 2 if severe.
Dx total joint.
docusate sodium 100 mg Capsule
100 mg PO BID Qty: 30 0RF
sennosides [Senna Laxative] 8.6 mg Tablet
17.2 mg PO BID Qty: 30 0RF
acetaminophen 325 mg Tablet
650 mg PO Q4HWA Qty: 30 0RF
Rx Instructions:
DO NOT exceed >4000 mg daily.
ondansetron HCl 4 mg tablet
4 mg PO Q6H PRN (Reason: nausea and vomiting) Qty: 30 0RF
Rx Instructions:
Prescribed by surgeon's office pre-op.
cefadroxil 500 mg capsule
500 mg PO Q12H Qty: 14 0RF
Rx Instructions:
Start night of discharge and continue every 12 hours until finished.
Saccharomyces boulardii [Florastor] 250 mg capsule
250 mg PO BID Qty: 14 0RF
Rx Instructions:
Over the counter. Take while on antibiotic.
If unavailable, choose a different probiotic.
celecoxib [Celebrex] 100 mg capsule
100 mg PO BID Qty: 30 0RF
Rx Instructions:
Take with food.
DO NOT take within 2 hours of Aspirin.
mupirocin 2 % Ointment
1 applic TOPICAL BID Qty: 0 0RF
valsartan-hydrochlorothiazide 160-25 mg Tablet
1 tab PO DAILY Qty: 0 0RF
Rx Instructions:
HOLD IF systolic blood pressure <130 while on Dilaudid.
Referrals:
David Gonzales MD [Active, Orthopedics]
Ezequiel Juan MD [Family Provider, Family Practice]
Activity Restrictions/Additional Instructions:
As scheduled please follow-up with Dr. Gonzales tomorrow morning. He will be able to visualize your blood work in the computer system. There is no acute concerning findings on your exam or with your blood work. Return if any worsening of symptoms.
Interventions
Interventions:
*Risk Screen - Suicide Last Done: 08/31/24 17:14
*Neglect/Abuse Screening Last Done: 08/31/24 17:18
Discharge Date and Time
Print Language: [place]
[2024-08-31 21:09] LABS: Hematocrit 34.4 % (37.0-47.0); Hemoglobin 11.5 g/dL (12.0-16.0); Mean Corp Hgb Conc. 33.4 g/dL (33.0-37.0); Mean Corpuscular Volume 92.5 fL (81.0-99.0); Nucleated Red Blood Cells % 0 %; Platelet Count 321 10^3/uL (130-400); Red Cell Dist. Width 15.0 % (11.5-14.5)
[2024-08-31 21:24] LABS: C-Reactive Protein < 5.00 mg/L (0.0-10.00)
[2024-08-31 21:39] VITALS: BP 130/69
== END 2024-08-31 22:00 | disposition home or self-care (01) ==
LOC: EMR 17:08
PROVIDERS: Nurse Practitioner; EMERGENCY PHYSICIAN Emergency Medicine; FAMILY PHYSICIAN Family Medicine
DX: M25.551 Pain in right hip (principal); I10 Essential (primary) hypertension; E11.9 Type 2 diabetes mellitus without complications; E78.00 Pure hypercholesterolemia, unspecified; Z96.641 Presence of right artificial hip joint
CPT/HCPCS: 99284; 73502; 85025; 85652; 86140